=== PATIENT | male | born 1945 | race African-American/Black ===

== ENCOUNTER 2020-01-14 07:17 | Inpatient (IN) | payer SELFPAY ==
[~2020-01-14] VITALS: Ht 175.3 cm; Wt 56.3 kg
[2020-01-14 07:20] VITALS: BP 129/102
--- NOTE | 2020-01-14 07:28 | Emergency Room Report ---
History of Present Illness General Chief Complaint: Dyspnea/Respdistress Source: Patient (Juan Antonio Ulloa MD) Present Illness HPI Disclaimer: Please note that this report is being documented using [employer] technology. This can lead to erroneous entry secondary to incorrect i nterpretation by the dictating instrument. HPI: 74-year-old male presents by EMS from home for evaluation of shortness of breath. Patient felt like he could not fully expand his lungs this morning notes a nonproductive cough beginning yesterday. EMS found him saturating 92% on room air with some increased work of breathing. Placed him on 4 L nasal cannula which improved his saturations. Denies fever, chills, nasal congestion, anosmia, sore throat, current abdominal pain, nausea, vomiting or diarrhea. He was scheduled for an EGD this morning for recurrent epigastric pain though he is asymptomatic at this time. He was unable to make that appointment due to his shortness of breath. He denies chest pain. Patient has a long smoking history but states his last cigarette was proxy 1 week ago. Also tested negative for COVID-19 1 week ago. No other sick contacts reported. 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 EOMI. Cardiovascular: Tachycardic. S1 and S2 normal. No murmur appreciated Resp: Normal work of breathing. No cough, wheezing or crackles appreciated Abdomen: Abdomen is soft, nondistended. Nontender Skin: Intact. No abrasions, laceration or rash over the exposed skin MSK: Normal tone and bulk. Moving all extremities. No obvious deformity. Neuro: Awake and alert. Mentating appropriately. (Juan Antonio Ulloa MD) Procedures Critical Care Time Critical Care Time i. I feel this is a highly complex case requiring extensive working including EKG/Rhythm strip, Xray/CT/US, Blood/urine lab work, repeat exams while in ED, and administration of strong opiates/narcotics for pain control, admission to hospital or close patient follow up. Total time: 60 min bedside evaluation and treatment excludes procedures (EKG). Reason for critical care: Hypoxia Possible complications: hypotension, hypertension, NE, shock, arrhythmias, metabolic acidosis, end organ damage, respiratory failure. Interventions: Labs, IV fluids, EKG, chest x-ray, antibiotics, Lovenox, review with cardiology at [facility], Lopressor Course: Presenting with shortness of breath and hypoxia. EKG shows a flutter with some abnormalities. Given Lopressor x3 with some cardioversion achieved. aVR appears abnormal. Patient denies chest pain. States he feels better on oxygen. Lungs appear to have limited expansion. Given breathing treatments. States he feels better. Denies chest pain. Hyperinflated lungs. BUN and creatinine elevated. Troponin indeterminate. Lactic elevated. D-dimer elevated. Unable to perform CTA due to creatinine. Covid negative. reviewed EKG with cardiology at [facility]. Agree that this is not a STEMI. Consultations: nursing staff, EMS, family Performed by: Dr Barron Tolerated well condition = serious j. because of unstable vital signs this patient had a condition that could potentially threaten life or limb. I feel this is a critical patient who required my full attention while patient was considered critical. Total Critic al Care Time excluding procedures was greater than 60 minutes (Yazan Barron MD) Medical Decision Making Diagnostic Impression: Primary Impression: Respiratory distress Additional Impressions: Pneumonia Qualified Codes: J18.9 - Pneumonia, unspecified organism Renal insufficiency Elevated troponin COPD (chronic obstructive pulmonary disease) Qualified Codes: J44.9 - Chronic obstructive pulmonary disease, unspecified Sepsis Qualified Codes: A41.9 - Sepsis, unspecified organism ER Course Is a 74-year-old male presenting for evaluation of shortness of breath. Differential includes was not limited to bronchitis, COPD exacerbation, asthma expiration, pneumonia, pneumothorax, pleural effusion, ACS, arrhythmia, palpitation, viral syndrome, GERD, sepsis, PE among others. Patient arrives tachycardic but saturating well on 4 L nasal cannula. Broad work-up including COVID-19 swab, cultures, D-dimer, ABG ordered. Patient receiving IV fluids. (Juan Antonio Ulloa MD) ER Course Hospital Course 74-year-old male presents with shortness of breath, hypoxic from home Initially seen and evaluated by Dr Ulloa; please see his note for full history and physical Clinical course Labs-leukocytosis, hemoglobin/hematocrit stable, BUN/creatinine elevated. Lactic 6.9. Troponin 0.099. ABG shows hypoxia with hypercapnia. EKG initially a flutter. Given Lopressor x3 with heart rate improved. There are some abnormal T waves noted. EKG sent to [facility] and they agreed that there is not an indication for STEMI treatment or transfer. Chest x-ray shows hyperinflated lungs with right-sided infiltrate. Given 30 cc/kg fluid bolus. Given broad-spectrum antibiotics. Given Lovenox. Given aspirin. Given breathing treatment. Case discussed with Dr. Mon and he agreed to the patient to his service for further care and support I feel this is a highly complex case requiring extensive working including EKG/Rhythm strip, Xray/CT/US, Blood/urine lab work, repeat exams while in ED, and administration of strong opiates/narcotics for pain control, admission to hospital or close patient follow up. Diagnosis - pneumonia, respiratory distress, renal insufficiency, elevated troponin, COPD, sepsis Patient admitted to telemetry in serious condition Laboratory Tests Test 01/14/20 07:30 01/14/20 07:50 01/14/20 09:45 White Blood Count 12.3 K/UL (4.8-10.8) H Red Blood Count 5.57 M/UL (4.70-6.10) Hemoglobin 15.3 G/DL (14.2-18.0) Hematocrit 48.8 % (42.0-52.0) Mean Corpuscular Volume 88 FL (80-99) Mean Corpuscular Hemoglobin 27.5 PG (27.0-31.0) Mean Corpuscular Hemoglobin Concent 31.4 G/DL (32.0-36.0) L Red Cell Distribution Width 13.7 % (11.6-14.8) Platelet Count 135 K/UL (150-450) L Mean Platelet Volume 7.9 FL (6.5-10.1) Neutrophils (%) (Auto) % (45.0-75.0) Lymphocytes (%) (Auto) % (20.0-45.0) Monocytes (%) (Auto) % (1.0-10.0) Eosinophils (%) (Auto) % (0.0-3.0) Basophils (%) (Auto) % (0.0-2.0) Differential Total Cells Counted 100 Neutrophils % (Manual) 82 % (45-75) H Lymphocytes % (Manual) 3 % (20-45) L Monocytes % (Manual) 5 % (1-10) Eosinophils % (Manual) 0 % (0-3) Basophils % (Manual) 0 % (0-2) Band Neutrophils 10 % (0-8) H Platelet Estimate Decreased L Platelet Morphology Normal Red Blood Cell Morphology Normal Prothrombin Time 12.9 SEC (9.30-11.50) H Prothromb Time International Ratio 1.2 (0.9-1.1) H Activated Partial Thromboplast Time 31 SEC (23-33) D-Dimer 5.05 mg/L FEU (0.00-0.49) H Sodium Level 139 MMOL/L (136-145) Potassium Level 4.0 MMOL/L (3.5-5.1) Chloride Level 103 MMOL/L (98-107) Carbon Dioxide Level 16 MMOL/L (21-32) L Blood Urea Nitrogen 22 mg/dL (7-18) H Creatinine 2.0 MG/DL (0.55-1.30) H Estimat Glomerular Filtration Rate 39.6 mL/min (>60) Glucose Level 198 MG/DL (74-106) H Lactic Acid Level 6.90 mmol/L (0.4-2.0) H 4.30 mmol/L (0.66-2.22) H Calcium Level 8.9 MG/DL (8.5-10.1) Ferritin 221 NG/ML (8-388) Total Bilirubin 1.6 MG/DL (0.2-1.0) H Direct Bilirubin 0.7 MG/DL (0.0-0.3) H Aspartate Amino Transf (AST/SGOT) 87 U/L (15-37) H Alanine Aminotransferase (ALT/SGPT) 19 U/L (12-78) Alkaline Phosphatase 167 U/L (46-116) H Lactate Dehydrogenase 303 U/L (81-234) H Total Creatine Kinase 175 U/L (26-308) Creatine Kinase MB 0.8 NG/ML (0.0-3.6) Creatine Kinase MB Relative Index 0.4 Troponin I 0.099 ng/mL (0.000-0.056) C-Reactive Protein, Quantitative 33.9 mg/dL (0.00-0.90) H Pro-B-Type Natriuretic Peptide 76990 pg/mL (0-125) H Total Protein 7.0 G/DL (6.4-8.2) Albumin 3.1 G/DL (3.4-5.0) L Globulin 3.9 g/dL Albumin/Globulin Ratio 0.8 (1.0-2.7) L Lipase 39 U/L (73-393) L Arterial Blood pH 7.438 (7.350-7.450) Arterial Blood Partial Pressure CO2 27.1 mmHg (35.0-45.0) L Arterial Blood Partial Pressure O2 52.9 mmHg (75.0-100.0) L Arterial Blood HCO3 17.9 mmol/L (22.0-26.0) *L Arterial Blood Oxygen Saturation 86.1 % (95-100) *L Arterial Blood Base Excess -4.7 (-2-2) L Greg Test Positive (Yazan Barron MD) EKG Diagnostic Results Troponin ordered: Yes Rate: tachycardiac Rhythm: NSR ST Segments: no acute changes ASA given to the pt in ED: Yes (Yazan Barron MD) Rhythm Strip Diag. Results EP Interpretation: yes Rhythm: NSR, no PVC's, no ectopy (Yazan Barron MD) Chest X-Ray Diagnostic Results Chest X-Ray Diagnostic Results : Chest X-Ray Ordered: Yes # of Views/Limited/Complete: 1 View Indication: Shortness of Breath EP Interpretation: Yes Interpretation: no pneumothorax, other - Right-sided infiltrate Impression: Other - Hyperinflated lungs, pneumonia Electronically Signed by: Electronically signed by Yazan Barron MD (Yazan Barron MD) Last Vital Signs Date Time Temp Pulse Resp B/P (MAP) Pulse Ox O2 Delivery O2 Flow Rate FiO2 01/14/20 07:16 99.1 126 21 170/120 (137) 98 Nasal Cannula 4.0 (Juan Antonio Ulloa MD) Status: improved (Yazan Barron MD) Disposition: ADMITTED INPATIENT Condition: Serious Scripts Unable to Obtain Active Prescriptions or Reported Meds Juan Antonio Ulloa MD Jan 14, 2020 07:28 Yazan Barron MD Jan 14, 2020 11:58
[2020-01-14] MEDS: Metoprolol Tartrate 5mg/5ml Inj IVP SCH ×3 (08:06→10:07)
[2020-01-14 08:11] LABS: HEMATOCRIT 48.8 % (42.0-52.0); HEMOGLOBIN 15.3 G/DL (14.2-18.0); MEAN CORPUSCULAR VOLUME 88 FL (80-99); PLATELET COUNT 135 K/UL (150-450); RED BLOOD COUNT 5.57 M/UL (4.70-6.10); RED CELL DISTRIBUTION WIDTH 13.7 % (11.6-14.8); WHITE BLOOD COUNT 12.3 K/UL (4.8-10.8)
[2020-01-14 08:22] LABS: INR 1.2 (0.9-1.1)
[2020-01-14 09:07] LABS: ALANINE AMINOTRANSFERASE 19 U/L (12-78); ALBUMIN 3.1 G/DL (3.4-5.0); ALBUMIN/GLOBULIN RATIO 0.8 (1.0-2.7); ALKALINE PHOSPHATASE 167 U/L (46-116); ASPARTATE AMINO TRANSFERASE 87 U/L (15-37); BILIRUBIN,TOTAL 1.6 MG/DL (0.2-1.0); BLOOD UREA NITROGEN 22 mg/dL (7-18); CALCIUM 8.9 MG/DL (8.5-10.1); CHLORIDE 103 MMOL/L (98-107); CKMB 0.8 NG/ML (0.0-3.6); CREATINE KINASE 175 U/L (26-308); FERRITIN 221 NG/ML (8-388); LACTATE DEHYDROGENASE 303 U/L (81-234); SODIUM 139 MMOL/L (136-145)
[2020-01-14 09:17] LABS: CARBON DIOXIDE 16 MMOL/L (21-32)
[2020-01-14 09:23] VITALS: BP 121/93
[2020-01-14 09:23] LABS: BILIRUBIN,DIRECT 0.7 MG/DL (0.0-0.3)
[2020-01-14] MEDS ORDERED: Enoxaparin 60mg Inj SUBQ ONE ×2 (10:05→10:15)
[2020-01-14] MEDS ORDERED: Albuterol/Ipratropium 3ml neb HHN ONE (10:45)
[2020-01-14 11:30] VITALS: BP 141/89
--- NOTE | 2020-01-14 14:30 | Diagnostic Imaging Report ---
Indication: Shortness of breath Technique: One view of the chest Comparison: none Findings: There is some infiltrate in the right infrahilar region. The lungs and pleural spaces are otherwise clear. The heart size is normal. The aorta is calcified Impression: Right infrahilar infiltrate
[2020-01-14] MEDS ORDERED: dilTIAZem HCl 60mg tab ORAL SCH (15:30)
[2020-01-14] MEDS ORDERED: TRIAMTERENE-HC1 EAC5 ORAL (15:49)
[2020-01-14] MEDS ORDERED: AMLODIPINE BESYL5 MG ORAL (15:49)
[2020-01-14] MEDS ORDERED: METOPROLOL TART25 MG ORAL (15:49)
[2020-01-14] MEDS ORDERED: ASPIRIN81 M3 PO (15:49)
--- NOTE | 2020-01-14 16:13 | Consultation ---
History of Present Illness General Date patient seen: Jan 14, 2020 Time patient seen: 16:03 Chief Complaint: Dyspnea/Respdistress Referring physician: Dr. Miguel Mon Reason for Consultation: Shortness of breath Present Illness HPI 74 y/o male w/ hx HTN, tobacco use disorder with several days of shortness of breath, cough with sputum and today stood up and was feeling dizzy/lightheaded. Brought to the hospital and found with hypoxia and CXR with RLL infiltrate as well as lactic acidosis. Also with atrial flutter. Long time smoker states he quit a week ago. Given levaquin in the emergency room. Allergies: Coded Allergies: No Known Allergies (Unverified , 01/14/20) Medication History Scheduled Amlodipine Besylate* (Amlodipine Besylate*), 5 MG ORAL DAILY, (Reported) Metoprolol Tartrate* (Metoprolol Tartrate*), 25 MG ORAL EVERY 12 HOURS, (Reported) Triamterene/Hydrochlorothiazide* (Dyazide 37.5-25 Mg Tab*), 1 TAB ORAL DAILY, (Reported) Miscellaneous Medications Aspirin (Aspirin), 81 MG PO, (Reported) Patient History History Provided By: Patient Healthcare decision maker Resuscitation status Advanced Directive on File Review of Systems Constitutional: Reports: weakness Eye: Denies: no symptoms, see HPI, eye pain, blurred vision, tearing, double vision, nose pain, nose congestion, acuity changes, discharge, other ENT: Denies: no symptoms, see HPI, ear pain, ear discharge, nose pain, nose congestion, throat pain, throat swelling, mouth pain, hearing loss, nasal discharge, other Respiratory: Reports: cough, shortness of breath Cardiovascular: Denies: no symptoms, see HPI, chest pain, edema, palpitations, syncope, PND, other Gastrointestinal: Denies: no symptoms, see HPI, abdominal pain, constipation, diarrhea, nausea, vomiting, melena, hematemesis, other Genitourinary: Denies: no symptoms, see HPI, discharge, dysuria, frequency, hematuria, pain, retention, incontinence, urgency, vag bleed/dc, other Musculoskeletal: Denies: no symptoms, see HPI, back pain, gout, joint pain, joint swelling, muscle pain, muscle stiffness, other Skin: Denies: no symptoms, see HPI, rash, change in color, change in hair/nails, dryness, lesions, other Psychiatric: Denies: no symptoms, see HPI, prior hx, anxiety, depressed feelings, emotional problems, SI, HI, hallucinations, other Neurological: Reports: dizziness Endocrine: Denies: no symptoms, see HPI, excessive sweating, flushing, intolerance to temperature, increased thirst, increased urine, unexplained weight loss, other Hematologic/Lymphatic: Denies: no symptoms, see HPI, anemia, blood clots, easy bleeding, easy bruising, swollen glands, diathesis, other Physical Exam General Appearance: WD/WN, no apparent distress, alert HEENT: normocephalic, atraumatic, anicteric, mucous membranes moist Neck: non-tender, supple Respiratory/Chest: other - coarse breath sounds with R basilar rales and wheeze with overall diminished breath sounds/air movement Cardiovascular/Chest: tachycardia Abdomen: non tender, soft Extremities: no edema 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 normal Last 24 Hour Vital Signs Date Time Temp Pulse Resp B/P (MAP) Pulse Ox O2 Delivery O2 Flow Rate FiO2 01/14/20 12:50 97.9 119 20 137/81 97 Room Air 8.0 40 01/14/20 11:30 97.6 117 20 141/89 99 Room Air 8.0 40 01/14/20 10:47 108 22 100 Room Air 8.0 40 115 22 100 01/14/20 10:07 122 137/97 01/14/20 09:23 98.5 118 20 121/93 94 Nasal Cannula 4.0 01/14/20 08:59 123 129/102 01/14/20 08:06 132 121/96 01/14/20 07:20 99.0 129 26 129/102 97 Nasal Cannula 4.0 01/14/20 07:20 129 26 Nasal Cannula 4.0 01/14/20 07:16 99.1 126 21 170/120 (137) 98 Nasal Cannula 4.0 Laboratory Tests Test 01/14/20 07:30 01/14/20 07:50 01/14/20 09:45 White Blood Count 12.3 K/UL (4.8-10.8) H Red Blood Count 5.57 M/UL (4.70-6.10) Hemoglobin 15.3 G/DL (14.2-18.0) Hematocrit 48.8 % (42.0-52.0) Mean Corpuscular Volume 88 FL (80-99) Mean Corpuscular Hemoglobin 27.5 PG (27.0-31.0) Mean Corpuscular Hemoglobin Concent 31.4 G/DL (32.0-36.0) L Red Cell Distribution Width 13.7 % (11.6-14.8) Platelet Count 135 K/UL (150-450) L Mean Platelet Volume 7.9 FL (6.5-10.1) Neutrophils (%) (Auto) % (45.0-75.0) Lymphocytes (%) (Auto) % (20.0-45.0) Monocytes (%) (Auto) % (1.0-10.0) Eosinophils (%) (Auto) % (0.0-3.0) Basophils (%) (Auto) % (0.0-2.0) Differential Total Cells Counted 100 Neutrophils % (Manual) 82 % (45-75) H Lymphocytes % (Manual) 3 % (20-45) L Monocytes % (Manual) 5 % (1-10) Eosinophils % (Manual) 0 % (0-3) Basophils % (Manual) 0 % (0-2) Band Neutrophils 10 % (0-8) H Platelet Estimate Decreased L Platelet Morphology Normal Red Blood Cell Morphology Normal Prothrombin Time 12.9 SEC (9.30-11.50) H Prothromb Time International Ratio 1.2 (0.9-1.1) H Activated Partial Thromboplast Time 31 SEC (23-33) D-Dimer 5.05 mg/L FEU (0.00-0.49) H Sodium Level 139 MMOL/L (136-145) Potassium Level 4.0 MMOL/L (3.5-5.1) Chloride Level 103 MMOL/L (98-107) Carbon Dioxide Level 16 MMOL/L (21-32) L Blood Urea Nitrogen 22 mg/dL (7-18) H Creatinine 2.0 MG/DL (0.55-1.30) H Estimat Glomerular Filtration Rate 39.6 mL/min (>60) Glucose Level 198 MG/DL (74-106) H Lactic Acid Level 6.90 mmol/L (0.4-2.0) H 4.30 mmol/L (0.66-2.22) H Calcium Level 8.9 MG/DL (8.5-10.1) Ferritin 221 NG/ML (8-388) Total Bilirubin 1.6 MG/DL (0.2-1.0) H Direct Bilirubin 0.7 MG/DL (0.0-0.3) H Aspartate Amino Transf (AST/SGOT) 87 U/L (15-37) H Alanine Aminotransferase (ALT/SGPT) 19 U/L (12-78) Alkaline Phosphatase 167 U/L (46-116) H Lactate Dehydrogenase 303 U/L (81-234) H Total Creatine Kinase 175 U/L (26-308) Creatine Kinase MB 0.8 NG/ML (0.0-3.6) Creatine Kinase MB Relative Index 0.4 Troponin I 0.099 ng/mL (0.000-0.056) C-Reactive Protein, Quantitative 33.9 mg/dL (0.00-0.90) H Pro-B-Type Natriuretic Peptide 82404 pg/mL (0-125) H Total Protein 7.0 G/DL (6.4-8.2) Albumin 3.1 G/DL (3.4-5.0) L Globulin 3.9 g/dL Albumin/Globulin Ratio 0.8 (1.0-2.7) L Lipase 39 U/L (73-393) L Arterial Blood pH 7.438 (7.350-7.450) Arterial Blood Partial Pressure CO2 27.1 mmHg (35.0-45.0) L Arterial Blood Partial Pressure O2 52.9 mmHg (75.0-100.0) L Arterial Blood HCO3 17.9 mmol/L (22.0-26.0) *L Arterial Blood Oxygen Saturation 86.1 % (95-100) *L Arterial Blood Base Excess -4.7 (-2-2) L Greg Test Positive Microbiology Date/Time Source Procedure Growth Status 01/14/20 07:30 Nasopharynx SARS-CoV-2 RdRp Gene Assay - Final Complete Height (Feet): 6 Weight (Pounds): 170 Medications Current Medications Medications (Trade) Dose Ordered Sig/Lola Route PRN Reason Start Time Stop Time Status Last Admin Dose Admin Diltiazem HCl (Cardizem Tab) 60 mg EVERY 6 HOURS ORAL 01/14/20 18:00 02/13/20 17:59 Diltiazem HCl (Cardizem Tab) 60 mg ONCE ORAL 01/14/20 15:30 01/14/20 16:30 Metoprolol Tartrate (Lopressor) 5 mg Q5MIN X 3 IVP 01/14/20 08:00 04/13/20 07:59 01/14/20 10:07 Assessment/Plan Assessment/Plan: Assessment: * Acute hypoxemic respiratory failure * Sepsis * RLL pneumonia * Lactic acidosis * Bronchospasm * Atrial flutter * tobacco use disorder * Hx HTN Plan: * abx for pneumonia * rate control for atrial flutter, hopefully improvement with treatment of pneumonia * atrovent nebs, avoid albuterol * Monitor volumes Case d/w Inder Soto MD Jan 14, 2020 16:13
[2020-01-14] MEDS ORDERED: Ipratropium 0.02% Inh Soln 2.5ml UD HHN PRN (16:15)
[2020-01-14] MEDS ORDERED: Milk of Magnesia 30ml Ud ORAL PRN (16:30)
[2020-01-14] MEDS: cefTRIAXone 1 GM in D5W 55 ML IVPB SCH (17:39)
[2020-01-14] MEDS: Eliquis 5mg tablet ORAL SCH (17:39)
[2020-01-14] MEDS: dilTIAZem HCl 60mg tab ORAL SCH (18:05)
--- NOTE | 2020-01-14 18:45 | History and Physical Report ---
DATE OF ADMISSION: 01/14/2020 CHIEF COMPLAINT/REASON FOR HOSPITALIZATION: The patient has dyspnea, pneumonia, and rapid atrial flutter. HISTORY OF PRESENT ILLNESS: The patient has a history of hypertension and smoking most of his life, apparently quit a week ago. He presents with shortness of breath, abnormal chest x-ray, and atrial flutter. Apparently, he was scheduled for an EGD for epigastric pain, but this has not occurred. The patient is only a fair historian. ALLERGIES: None known. 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 HABITS: He is a lifelong smoker, recently quit. Alcohol none for over 30 years. SOCIAL HISTORY: He is an immigrant from [facility]. 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 SYSTEM REVIEW: HEAD, EYES, EARS, NOSE, THROAT: Vision and hearing is good. ENDOCRINE: No known diabetes or thyroid disease. He has been thin most of his life. PULMONARY: History of smoking as above. No history of asthma or using inhalers. CARDIAC: He is not aware of palpitations or chest pain. Noted history of MO. GASTROINTESTINAL: No ulcers or GI bleeding. Apparently, he has had epigastric pain in the past. GENITOURINARY: No dysuria, hematuria, or kidney stones. NEUROLOGIC: No CVA, syncope, or seizures. PHYSICAL EXAMINATION: GENERAL: The patient is alert man. He is just arriving in his room in no acute distress. VITAL SIGNS: Temperature 97.9, pulse 119, respiratory rate 20, blood pressure 137/81. HEAD, EYES, EARS, NOSE, THROAT: Sclerae are nonicteric. Ocular motions intact in all directions. He is edentulous. Throat is clear. NECK: No adenopathy or thyroid enlargement. LUNGS: Distant breath sounds. I do not hear any rales or rhonchi. HEART: Rhythm is irregular. There is a 2/6 systolic ejection murmur, harsh. ABDOMEN: Soft without organomegaly or masses. He is quite thin . EXTREMITIES: Show no edema. There is amputation of the right second and third toe. NEUROLOGIC: He is alert and oriented. Cranial nerves intact. PERTINENT LABORATORY DATA: Chest x-ray shows a right middle lobe infiltrate. White count 12.3, hemoglobin 15.3. BUN 22, creatinine 2, sodium 139, potassium 4, chloride 103, and CO2 of 16. Lactic acid 6.9 and 4.3. Troponin 0.099. BNP is 10,947. Albumin 3.1. IMPRESSION: 1. Pneumonia, right lower lobe. 2. Atrial flutter with rapid ventricular rate. 3. Lactic acidosis. 4. Elevated BUN and creatinine, possible chronic kidney disease, possible component of dehydration. 5. Abnormal glucose of 198. 6. Abnormal AST of 87 and alkaline phosphatase 167. LDH 303. To evaluate for liver disease. 7. Low serum albumin, likely some moderate protein-calorie malnutrition. PLAN: The patient will be treated with antibiotics for community-acquired pneumonia. We will get rate control on his atrial flutter and anticoagulation. We will watch him closely in view of his comorbidities. Miguel Mon M.D. DR: Galen JOB#: [id number] CC:
[2020-01-14] MEDS: Azithromycin 500 MG in D5W 275 ML IV SCH (19:20)
[2020-01-14 20:00] VITALS: BP 116/84
[2020-01-15] VITALS (7 sets, daily range): BP systolic 110–124; BP diastolic 70–85
[2020-01-15] MEDS: dilTIAZem HCl 60mg tab ORAL SCH ×5 (06:18→23:57)
[2020-01-15 06:38] LABS: HEMATOCRIT 37.5 % (42.0-52.0); HEMOGLOBIN 12.5 G/DL (14.2-18.0); MEAN CORPUSCULAR VOLUME 88 FL (80-99); PLATELET COUNT 147 K/UL (150-450); RED BLOOD COUNT 4.27 M/UL (4.70-6.10); WHITE BLOOD COUNT 10.9 K/UL (4.8-10.8)
[2020-01-15 07:02] LABS: ALBUMIN 2.4 G/DL (3.4-5.0); ALBUMIN/GLOBULIN RATIO 0.6 (1.0-2.7); BILIRUBIN,TOTAL 0.7 MG/DL (0.2-1.0); CALCIUM 8.1 MG/DL (8.5-10.1); CREATININE 1.4 MG/DL (0.55-1.30); POTASSIUM 4.1 MMOL/L (3.5-5.1)
[2020-01-15] MEDS: Eliquis 5mg tablet ORAL SCH ×2 (08:58→18:11)
[2020-01-15] MEDS ORDERED: guaiFENesin /DM 10ml syrup ORAL PRN (09:45)
--- NOTE | 2020-01-15 09:53 | Pulmonology Progress Note ---
Subjective ROS Limited/Unobtainable: No Allergies: Coded Allergies: No Known Allergies (Unverified , 01/14/20) Subjective leuk resolving, no fvers remains on VM + cough, some SOB no hemoptysis, no wheezing reports feeling better no CP, palpitations now HR controlled, though remains in A flutter creat trending down Objective Last 24 Hour Vital Signs Date Time Temp Pulse Resp B/P (MAP) Pulse Ox O2 Delivery O2 Flow Rate FiO2 01/15/20 09:22 93 120/74 01/15/20 09:20 120/74 (89) 01/15/20 08:00 98.9 68 20 117/85 (96) 98 01/15/20 06:18 80 113/80 01/15/20 04:00 98.1 67 20 111/72 (85) 97 01/15/20 04:00 67 01/15/20 00:00 68 01/15/20 00:00 65 110/65 01/15/20 00:00 98.1 67 20 110/70 (83) 96 01/14/20 21:28 77 116/84 01/14/20 21:00 Venturi Mask 7.0 01/14/20 20:00 86 01/14/20 20:00 98.2 77 21 116/84 (95) 96 01/14/20 18:05 107 141/96 01/14/20 17:16 Venturi Mask 6.0 01/14/20 16:05 125 129/102 01/14/20 12:50 97.9 119 20 137/81 97 Room Air 8.0 40 01/14/20 11:30 97.6 117 20 141/89 99 Room Air 8.0 40 01/14/20 10:47 108 22 100 Room Air 8.0 40 115 22 100 01/14/20 10:07 122 137/97 Intake and Output 01/14/20 01/15/20 19:00 07:00 Intake Total 240 ml 600 ml Output Total 1200 ml 800 ml Balance -960 ml -200 ml Intake Oral 240 ml 600 ml Output Urine Total 1200 ml 800 ml # Voids 3 2 General Appearance: no acute distress HEENT: normocephalic, atraumatic, anicteric, mucous membranes moist, PERRL, other - VM on Respiratory: chest wall non-tender, no respiratory distress, other - coarse BS with rhonchi on the right Cardiovascular: normal rate - A flutter on tele Abdomen: normal bowel sounds, soft, non tender, non distended Extremities: no edema, pedal pulses normal Skin: no rash Neurologic: shotblaster II-XII grossly normal, no motor/sensory deficits, alert, oriented x 3, responsive Musculoskeletal: normal muscle bulk Microbiology Date/Time Source Procedure Growth Status 01/14/20 07:30 Nasopharynx SARS-CoV-2 RdRp Gene Assay - Final Complete Laboratory Tests 01/14/20 09:45: Lactic Acid Level 4.30H 01/15/20 05:50: White Blood Count 10.9H, Red Blood Count 4.27L, Hemoglobin 12.5L, Hematocrit 37.5L, Mean Corpuscular Volume 88, Mean Corpuscular Hemoglobin 29.3, Mean Corpu scular Hemoglobin Concent 33.4, Red Cell Distribution Width 14.0, Platelet Count 147L, Mean Platelet Volume 7.9, Neutrophils (%) (Auto) , Lymphocytes (%) (Auto) , Monocytes (%) (Auto) , Eosinophils (%) (Auto) , Basophils (%) (Auto) , N eutrophils % (Manual) [Pending], Lymphocytes % (Manual) [Pending], Platelet Estimate [Pending], Platelet Morphology [Pending], Sodium Level 140, Potassium Level 4.1, Chloride Level 108H, Carbon Dioxide Level 24, Anion Gap 8, Blood Urea Nitrogen 26H, Creatinine 1.4H, Estimat Glomerular Filtration Rate 59.9, Glucose Level 102, Calcium Level 8.1L, Total Bilirubin 0.7, Aspartate Amino Transf (AST/SGOT) 44H, Alanine Aminotransferase (ALT/SGPT) 18, Alkaline Phosphatase 142H, Troponin I 0.127H, Total Protein 6.2L, Albumin 2.4L, Globulin 3.8, Albumin/Globulin Ratio 0.6L Current Medications Medications (Trade) Dose Ordered Sig/Lola Route PRN Reason Start Time Stop Time Status Last Admin Dose Admin Acetaminophen (Tylenol) 650 mg Q4H PRN ORAL Mild Pain (Pain Scale 1-3) 01/14/20 16:30 02/13/20 16:29 Apixaban (Eliquis) 5 mg BID ORAL 01/14/20 18:00 04/13/20 17:59 01/15/20 08:58 Azithromycin 500 mg/Dextrose 275 ml @ 275 mls/hr Q24HRS IV 01/14/20 18:00 01/20/20 18:59 01/14/20 19:20 Ceftriaxone Sodium 1 gm/ Dextrose 55 ml @ 110 mls/hr Q24H IVPB 01/14/20 17:00 01/21/20 16:59 01/14/20 17:39 Diltiazem HCl (Cardizem Tab) 60 mg EVERY 6 HOURS ORAL 01/14/20 18:00 02/13/20 17:59 01/15/20 06:18 Famotidine (Pepcid) 20 mg DAILY ORAL 01/14/20 16:30 04/13/20 16:29 01/15/20 08:57 Ipratropium [place] (Atrovent) 500 mcg Q4H PRN HHN Shortness of Breath 01/14/20 16:15 01/19/20 16:14 Magnesium Hydroxide (Mom) 30 ml DAILYPRN PRN ORAL Constipation 01/14/20 16:30 02/13/20 16:29 Metoprolol Tartrate (Lopressor) 5 mg Q5MIN X 3 IVP 01/14/20 08:00 04/13/20 07:59 01/14/20 10:07 Metoprolol Tartrate (Lopressor) 25 mg Q12HR ORAL 01/14/20 21:00 04/13/20 20:59 01/15/20 09:22 Assessment/Plan Assessment/Plan ASSESSMENT * Acute hypoxemic respiratory failure ( requiring supplemental O2) * Sepsis * RLL pneumonia * Lactic acidosis * Bronchospasm, possible COPD * Atrial flutter with RVR * elevated troponin * tobacco use disorder * Hx HTN * MADDY possibly on CKD * Protein calorie malnutrition * elevated AST PLAN * abx for CAP /pneumonia -Azithro and Ceftriaxone * rate control for atrial flutter, now controlled, a/c with Xarelto * O2 titrate to keep sat > 90% * atrovent nebs, avoid albuterol * monitor volumes * fup with CXR * a/tussive prn * declined Nicotine patch * hiv counselor to continue abstinence from smoking ( quit a week ago) * serial troponin, troponin leak 2 to renal failure vs demand due to A flutter with RVR? * cardio eval as per primary , no cardiac complaints, * consider ECHO * creat trending down, likely due to dehydration, possibly chronic component * dietary eval re protein calorie malnutrition * GI prophylaxis * monitor LFT, AST trending down, denies ETOH or dug use, no hx of liver disease, no hx of hepatitis case discussed and evaluated by supervising physician Gunjan Holliday NP Jan 15, 2020 09:53
--- NOTE | 2020-01-15 13:14 | Cardiology Progress Note ---
Assessment/Plan Assessment/Plan The patient is seen and examined, full consult note is dictated. Objective Last 24 Hour Vital Signs Date Time Temp Pulse Resp B/P (MAP) Pulse Ox O2 Delivery O2 Flow Rate FiO2 01/15/20 12:30 68 119/72 01/15/20 12:00 98.1 68 17 119/72 (88) 96 01/15/20 09:22 93 120/74 01/15/20 09:20 120/74 (89) 01/15/20 09:00 Venturi Mask 6.0 01/15/20 08:00 98.9 68 20 117/85 (96) 98 01/15/20 08:00 76 01/15/20 06:18 80 113/80 01/15/20 04:00 98.1 67 20 111/72 (85) 97 01/15/20 04:00 67 01/15/20 00:00 68 01/15/20 00:00 65 110/65 01/15/20 00:00 98.1 67 20 110/70 (83) 96 01/14/20 21:28 77 116/84 01/14/20 21:00 Venturi Mask 7.0 01/14/20 20:00 86 01/14/20 20:00 98.2 77 21 116/84 (95) 96 01/14/20 18:05 107 141/96 01/14/20 17:16 Venturi Mask 6.0 01/14/20 16:05 125 129/102 Intake and Output 01/14/20 01/15/20 19:00 07:00 Intake Total 240 ml 600 ml Output Total 1200 ml 800 ml Balance -960 ml -200 ml Intake Oral 240 ml 600 ml Output Urine Total 1200 ml 800 ml # Voids 3 2 Laboratory Tests Test 01/15/20 05:50 White Blood Count 10.9 K/UL (4.8-10.8) H Red Blood Count 4.27 M/UL (4.70-6.10) L Hemoglobin 12.5 G/DL (14.2-18.0) L Hematocrit 37.5 % (42.0-52.0) L Mean Corpuscular Volume 88 FL (80-99) Mean Corpuscular Hemoglobin 29.3 PG (27.0-31.0) Mean Corpuscular Hemoglobin Concent 33.4 G/DL (32.0-36.0) Red Cell Distribution Width 14.0 % (11.6-14.8) Platelet Count 147 K/UL (150-450) L Mean Platelet Volume 7.9 FL (6.5-10.1) Neutrophils (%) (Auto) % (45.0-75.0) Lymphocytes (%) (Auto) % (20.0-45.0) Monocytes (%) (Auto) % (1.0-10.0) Eosinophils (%) (Auto) % (0.0-3.0) Basophils (%) (Auto) % (0.0-2.0) Differential Total Cells Counted 100 Neutrophils % (Manual) 87 % (45-75) H Lymphocytes % (Manual) 9 % (20-45) L Monocytes % (Manual) 3 % (1-10) Eosinophils % (Manual) 1 % (0-3) Basophils % (Manual) 0 % (0-2) Band Neutrophils 0 % (0-8) Platelet Estimate Decreased L Platelet Morphology Normal Red Blood Cell Morphology Normal Sodium Level 140 MMOL/L (136-145) Potassium Level 4.1 MMOL/L (3.5-5.1) Chloride Level 108 MMOL/L (98-107) H Carbon Dioxide Level 24 MMOL/L (21-32) Anion Gap 8 mmol/L (5-15) Blood Urea Nitrogen 26 mg/dL (7-18) H Creatinine 1.4 MG/DL (0.55-1.30) H Estimat Glomerular Filtration Rate 59.9 mL/min (>60) Glucose Level 102 MG/DL (74-106) Calcium Level 8.1 MG/DL (8.5-10.1) L Total Bilirubin 0.7 MG/DL (0.2-1.0) Aspartate Amino Transf (AST/SGOT) 44 U/L (15-37) H Alanine Aminotransferase (ALT/SGPT) 18 U/L (12-78) Alkaline Phosphatase 142 U/L (46-116) H Troponin I 0.127 ng/mL (0.000-0.056) Total Protein 6.2 G/DL (6.4-8.2) L Albumin 2.4 G/DL (3.4-5.0) L Globulin 3.8 g/dL Albumin/Globulin Ratio 0.6 (1.0-2.7) L Microbiology Date/Time Source Procedure Growth Status 01/14/20 07:30 Nasopharynx SARS-CoV-2 RdRp Gene Assay - Final Complete Cecil Mora MD Jan 15, 2020 13:14
[2020-01-15] MEDS: cefTRIAXone 1 GM in D5W 55 ML IVPB SCH (17:06)
[2020-01-15] MEDS: Azithromycin 500 MG in D5W 275 ML IV SCH (18:10)
--- NOTE | 2020-01-15 19:55 | General Progress Note ---
Subjective Constitutional: Reports: weakness Respiratory: Reports: cough Gastrointestinal/Abdominal: Reports: no symptoms Genitourinary: Reports: no symptoms Endocrine: Reports: no symptoms Hematologic/Lymphatic: Reports: no symptoms Allergies: Coded Allergies: No Known Allergies (Unverified , 01/14/20) Objective Last 24 Hour Vital Signs Date Time Temp Pulse Resp B/P (MAP) Pulse Ox O2 Delivery O2 Flow Rate FiO2 01/15/20 18:14 85 116/81 01/15/20 16:00 75 01/15/20 16:00 98.8 69 18 118/79 (92) 96 01/15/20 12:30 68 119/72 01/15/20 12:00 98.1 68 17 119/72 (88) 96 01/15/20 12:00 84 01/15/20 09:22 93 120/74 01/15/20 09:20 120/74 (89) 01/15/20 09:00 Venturi Mask 6.0 01/15/20 08:00 98.9 68 20 117/85 (96) 98 01/15/20 08:00 76 01/15/20 06:18 80 113/80 01/15/20 04:00 98.1 67 20 111/72 (85) 97 01/15/20 04:00 67 01/15/20 00:00 68 01/15/20 00:00 65 110/65 01/15/20 00:00 98.1 67 20 110/70 (83) 96 01/14/20 21:28 77 116/84 01/14/20 21:00 Venturi Mask 7.0 01/14/20 20:00 86 01/14/20 20:00 98.2 77 21 116/84 (95) 96 Intake and Output 01/14/20 01/15/20 19:00 07:00 Intake Total 240 ml 600 ml Output Total 1200 ml 800 ml Balance -960 ml -200 ml Intake Oral 240 ml 600 ml Output Urine Total 1200 ml 800 ml # Voids 3 2 Laboratory Tests 01/15/20 05:50: White Blood Count 10.9H, Red Blood Count 4.27L, Hemoglobin 12.5L, Hematocrit 37.5L, Mean Corpuscular Volume 88, Mean Corpuscular Hemoglobin 29.3, Mean Cor puscular Hemoglobin Concent 33.4, Red Cell Distribution Width 14.0, Platelet Count 147L, Mean Platelet Volume 7.9, Neutrophils (%) (Auto) , Lymphocytes (%) (Auto) , Monocytes (%) (Auto) , Eosinophils (%) (Auto) , Basophils (%) (Auto) , Differential Total Cells Counted 100, Neutrophils % (Manual) 87H, Lymphocytes % (Manual) 9L, Monocytes % (Manual) 3, Eosinophils % (Manual) 1, Basophils % (Manual) 0, Band Neutrophils 0, Platelet Estimate DecreasedL, Platelet Morphology Normal, Red Blood Cell Morphology Normal, Sodium Level 140, Potassium Level 4.1, Chloride Level 108H, Carbon Dioxide Level 24, Anion Gap 8, Blood Urea Nitrogen 26H, Creatinine 1.4H, Estimat Glomerular Filtration Rate 59.9, Glucose Level 102, Calcium Level 8.1L, Total Bilirubin 0.7, Aspartate Amino Transf (AST/SGOT) 44H, Alanine Aminotransferase (ALT/SGPT) 18, Alkaline Phosphatase 142H, Troponin I 0.127H, Total Protein 6.2L, Albumin 2.4L, Globulin 3.8, Albumin/Globulin Ratio 0.6L Height (Feet): 5 Height (Inches): 9.00 Weight (Pounds): 127 General Appearance: no apparent distress, alert, thin EENT: normal ENT inspection Neck: normal alignment Cardiovascular: regularly irregular Respiratory/Chest: lungs clear Abdomen: no organomegaly Edema: no edema noted Arm (L), no edema noted Arm (R), no edema noted Leg (L), no edema noted Leg (R), no edema noted Pedal (L), no edema noted Pedal (R), no edema noted Generalized Neurologic: hemp fiber taker off II-XII grossly normal Assessment/Plan Problem List: (1) Atrial flutter ICD Codes: I48.92 - Unspecified atrial flutter SNOMED: 2613680 (2) Pneumonia ICD Codes: J18.9 - Pneumonia, unspecified organism SNOMED: 336716049, 803700414, 662393039 Qualifiers: Qualified Codes: J18.9 - Pneumonia, unspecified organism (3) Elevated troponin ICD Codes: R77.8 - Other specified abnormalities of plasma proteins SNOMED: 979263973, 685579705, 259178435 (4) COPD (chronic obstructive pulmonary disease) ICD Codes: J44.9 - Chronic obstructive pulmonary disease, unspecified SNOMED: 45184676 Qualifiers: Qualified Codes: J44.9 - Chronic obstructive pulmonary disease, unspecified Assessment/Plan: improving, continue current meds, CM to assess dc plan Miguel Mon MD Jan 15, 2020 19:55
[2020-01-16] VITALS: BP 134/84
[2020-01-16 04:00] VITALS: BP 126/81
[2020-01-16] MEDS: dilTIAZem HCl 60mg tab ORAL SCH ×3 (06:16→17:29)
[2020-01-16 07:22] LABS: BASOPHILS % (AUTO) 1.2 % (0.0-2.0); EOSINOPHILS % (AUTO) 0.7 % (0.0-3.0); HEMATOCRIT 40.2 % (42.0-52.0); HEMOGLOBIN 13.6 G/DL (14.2-18.0); LYMPHOCYTES % (AUTO) 13.6 % (20.0-45.0); MEAN CORPUSCULAR VOLUME 86 FL (80-99); NEUTROPHILS % (AUTO) 74.5 % (45.0-75.0); PLATELET COUNT 154 K/UL (150-450); RED BLOOD COUNT 4.66 M/UL (4.70-6.10); RED CELL DISTRIBUTION WIDTH 14.1 % (11.6-14.8); WHITE BLOOD COUNT 6.7 K/UL (4.8-10.8)
[2020-01-16 07:34] LABS: ANION GAP 7 mmol/L (5-15); BLOOD UREA NITROGEN 14 mg/dL (7-18); CALCIUM 8.6 MG/DL (8.5-10.1); CARBON DIOXIDE 27 MMOL/L (21-32); CHLORIDE 105 MMOL/L (98-107); CREATININE 1.2 MG/DL (0.55-1.30); POTASSIUM 4.1 MMOL/L (3.5-5.1); SODIUM 139 MMOL/L (136-145)
[2020-01-16 08:00] VITALS: BP 140/91
[2020-01-16] MEDS: Eliquis 5mg tablet ORAL SCH ×2 (08:59→17:29)
--- NOTE | 2020-01-16 09:15 | Pulmonology Progress Note ---
Subjective ROS Limited/Unobtainable: No Allergies: Coded Allergies: No Known Allergies (Unverified , 01/14/20) All Systems: reviewed and negative except above Subjective leuk resolving, no fevers remains on VM 30 % + cough, some SOB no hemoptysis, no wheezing reports feeling better no CP, palpitations now HR controlled, though remains in A flutter creat down to normal Objective Last 24 Hour Vital Signs Date Time Temp Pulse Resp B/P (MAP) Pulse Ox O2 Delivery O2 Flow Rate FiO2 01/16/20 08:59 98 140/91 01/16/20 08:00 99.1 98 20 140/91 (107) 95 01/16/20 07:15 95 Venturi Mask 4.0 30 01/16/20 06:16 97 147/99 01/16/20 04:00 71 01/16/20 04:00 98.8 56 20 126/81 (96) 98 01/16/20 00:00 98.8 66 20 134/84 (101) 97 01/16/20 00:00 66 01/15/20 23:57 66 134/84 01/15/20 21:29 95 124/85 01/15/20 21:00 Venturi Mask 4.0 01/15/20 20:00 99.0 95 24 124/85 (98) 95 01/15/20 20:00 75 01/15/20 18:14 85 116/81 01/15/20 16:00 75 01/15/20 16:00 98.8 69 18 118/79 (92) 96 01/15/20 12:30 68 119/72 01/15/20 12:00 98.1 68 17 119/72 (88) 96 01/15/20 12:00 84 01/15/20 09:22 93 120/74 01/15/20 09:20 120/74 (89) Intake and Output 01/15/20 01/16/20 19:00 07:00 Intake Total 850 ml Output Total 750 ml Balance 100 ml Intake Oral 450 ml Other 400 ml Output Urine Total 750 ml General Appearance: no acute distress HEENT: normocephalic, atraumatic, anicteric, mucous membranes moist, PERRL, o ther - VM on Respiratory: chest wall non-tender, no respiratory distress, other - few isolated rhonchi on the right, overall BS much clear Cardiovascular: normal rate - A flutter on tele Abdomen: normal bowel sounds, soft, non tender, non distended Extremities: no edema, pedal pulses normal Skin: no rash Neurologic: rfp writer II-XII grossly normal, no motor/sensory deficits, alert, o riented x 3, responsive Musculoskeletal: normal muscle bulk Microbiology Date/Time Source Procedure Growth Status 01/14/20 07:45 Blood Blood Culture - Preliminary Resulted 01/14/20 07:30 Nasopharynx SARS-CoV-2 RdRp Gene Assay - Final Complete 01/14/20 07:30 Blood Blood Culture - Preliminary NO GROWTH AFTER 24 HOURS Resulted Laboratory Tests 01/16/20 06:38: White Blood Count 6.7, Red Blood Count 4.66L, Hemoglobin 13.6L, Hematocrit 40.2L , Mean Corpuscular Volume 86, Mean Corpuscular Hemoglobin 29.2, Mean Corpuscular Hemoglobin Concent 33.9, Red Cell Distribution Width 14.1, Platelet Count 154, Mean Platelet Volume 7.8, Neutrophils (%) (Auto) 74.5, Lymphocytes (%) (Auto) 13.6L, Monocytes (%) (Auto) 10.0, Eosinophils (%) (Auto) 0.7, Basophils (%) (Auto) 1.2, Sodium Level 139, Potassium Level 4.1, Chloride Level 105, Carbon Dioxide Level 27, Anion Gap 7, Blood Urea Nitrogen 14, Creatinine 1.2, Estimat Glomerular Filtration Rate > 60, Glucose Level 103, Calcium Level 8.6, Troponin I 0.032 Current Medications Medications (Trade) Dose Ordered Sig/Lola Route PRN Reason Start Time Stop Time Status Last Admin Dose Admin Acetaminophen (Tylenol) 650 mg Q4H PRN ORAL Mild Pain (Pain Scale 1-3) 01/14/20 16:30 02/13/20 16:29 Apixaban (Eliquis) 5 mg BID ORAL 01/14/20 18:00 04/13/20 17:59 01/16/20 08:59 Azithromycin 500 mg/Dextrose 275 ml @ 275 mls/hr Q24HRS IV 01/14/20 18:00 01/20/20 18:59 01/15/20 18:10 Ceftriaxone Sodium 1 gm/ Dextrose 55 ml @ 110 mls/hr Q24H IVPB 01/14/20 17:00 01/21/20 16:59 01/15/20 17:06 Diltiazem HCl (Cardizem Tab) 60 mg EVERY 6 HOURS ORAL 01/14/20 18:00 02/13/20 17:59 01/16/20 06:16 Famotidine (Pepcid) 20 mg DAILY ORAL 01/14/20 16:30 04/13/20 16:29 01/16/20 08:59 Guaifenesin/ Dextromethorphan (Robitussin DM Syrup) 10 ml Q6H PRN ORAL For Cough 01/15/20 09:45 04/14/20 09:44 01/16/20 08:59 Ipratropium [place] (Atrovent) 500 mcg Q4H PRN HHN Shortness of Breath 01/14/20 16:15 01/19/20 16:14 Magnesium Hydroxide (Mom) 30 ml DAILYPRN PRN ORAL Constipation 01/14/20 16:30 02/13/20 16:29 Metoprolol Tartrate (Lopressor) 5 mg Q5MIN X 3 IVP 01/14/20 08:00 04/13/20 07:59 01/14/20 10:07 Metoprolol Tartrate (Lopressor) 25 mg Q12HR ORAL 01/14/20 21:00 04/13/20 20:59 01/16/20 08:59 Assessment/Plan Assessment/Plan ASSESSMENT * Acute hypoxemic respiratory failure ( requiring supplemental O2 via VM) * Sepsis * RLL pneumonia * Lactic acidosis * Bronchospasm, possible COPD * Atrial flutter with RVR * elevated troponin * Gram positive primo bacteremia * tobacco use disorder * Hx HTN * MADDY possibly on CKD * Protein calorie malnutrition * elevated AST PLAN * abx for CAP /pneumonia -Azithro and Ceftriaxone * rate control for atrial flutter, now controlled, a/c with Xarelto * O2 titrate to keep sat > 90%, try to wean from VM * atrovent nebs, avoid albuterol * SCX if able * Venous Duplex BLE given persistent hypoxemia * 01/13 BCX 1/ GPR, likely contaminant, will repeat BCX for clearance * monitor volumes * fup with CXR in am * declined Nicotine patch * peer counselor to continue abstinence from smoking ( quit a week prior to admission) * serial troponin, troponin leak 2 to renal failure vs demand due to A flutter with RVR? , last troponin this am NGT * cardio eval appreciated; no cardiac complaints, * consider ECHO * creat down to normal , likely due to dehydration, Gunjan Holliday NP Jan 16, 2020 09:15 Inder Ruby MD Jan 16, 2020 11:37
[2020-01-16 12:00] VITALS: BP 134/89
--- NOTE | 2020-01-16 13:07 | Diagnostic Imaging Report ---
Indication: Bilateral leg pain Technique: Grayscale and duplex images of the bilateral lower extremity veins Comparison: Findings: Bilaterally, grayscale and duplex images demonstrate no evidence of intraluminal thrombus. Normal phasic Doppler waveforms, demonstrating normal augmentation response and no evidence of valvular insufficiency. Greater saphenous vein(s) and tibial veins are patent. Normal compressibility. Impression: Negative for evidence of lower extremity deep venous thrombosis bilaterally
--- NOTE | 2020-01-16 14:16 | General Progress Note ---
Subjective Constitutional: Reports: weakness HEENT: Reports: no symptoms Cardiovascular: Reports: no symptoms Gastrointestinal/Abdominal: Reports: no symptoms Genitourinary: Reports: no symptoms Neurologic/Psychiatric: Reports: no symptoms Endocrine: Reports: no symptoms Hematologic/Lymphatic: Reports: anemia Allergies: Coded Allergies: No Known Allergies (Unverified , 01/14/20) Objective Last 24 Hour Vital Signs Date Time Temp Pulse Resp B/P (MAP) Pulse Ox O2 Delivery O2 Flow Rate FiO2 01/16/20 12:30 79 19 100 01/16/20 12:13 67 134/89 01/16/20 12:00 77 01/16/20 12:00 98.1 67 18 134/89 (104) 94 01/16/20 08:59 98 140/91 01/16/20 08:00 99.1 98 20 140/91 (107) 95 01/16/20 08:00 89 01/16/20 08:00 89 01/16/20 07:15 95 Venturi Mask 4.0 30 01/16/20 06:16 97 147/99 01/16/20 04:00 71 01/16/20 04:00 98.8 56 20 126/81 (96) 98 01/16/20 00:00 98.8 66 20 134/84 (101) 97 01/16/20 00:00 66 01/15/20 23:57 66 134/84 01/15/20 21:29 95 124/85 01/15/20 21:00 Venturi Mask 4.0 01/15/20 20:00 99.0 95 24 124/85 (98) 95 01/15/20 20:00 75 01/15/20 18:14 85 116/81 01/15/20 16:00 75 01/15/20 16:00 98.8 69 18 118/79 (92) 96 Intake and Output 01/15/20 01/16/20 19:00 07:00 Intake Total 850 ml Output Total 750 ml Balance 100 ml Intake Oral 450 ml Other 400 ml Output Urine Total 750 ml Laboratory Tests 01/16/20 06:38: White Blood Count 6.7, Red Blood Count 4.66L, Hemoglobin 13.6L, Hematocrit 40.2L , Mean Corpuscular Volume 86, Mean Corpuscular Hemoglobin 29.2, Mean Corpuscular Hemoglobin Concent 33.9, Red Cell Distribution Width 14.1, Platelet Count 154, Mean Platelet Volume 7.8, Neutrophils (%) (Auto) 74.5, Lymphocytes (%) (Auto) 13.6L, Monocytes (%) (Auto) 10.0, Eosinophils (%) (Auto) 0.7, Basophils (%) (Aut o) 1.2, Sodium Level 139, Potassium Level 4.1, Chloride Level 105, Carbon Dioxide Level 27, Anion Gap 7, Blood Urea Nitrogen 14, Creatinine 1.2, Estimat Glomerular Filtration Rate > 60, Glucose Level 103, Calcium Level 8.6, Troponin I 0.032 Height (Feet): 5 Height (Inches): 9.00 Weight (Pounds): 127 General Appearance: no apparent distress, alert, thin EENT: normal ENT inspection Neck: normal alignment Cardiovascular: regularly irregular, systolic murmur Respiratory/Chest: lungs clear Abdomen: non tender, soft Edema: no edema noted Arm (L), no edema noted Arm (R), no edema noted Leg (L), no edema noted Leg (R), no edema noted Pedal (L), no edema noted Pedal (R), no edema noted Generalized Neurologic: emergency department manager II-XII grossly normal Assessment/Plan Problem List: (1) Atrial flutter ICD Codes: I48.92 - Unspecified atrial flutter SNOMED: 4273044 (2) Pneumonia ICD Codes: J18.9 - Pneumonia, unspecified organism SNOMED: 347252112, 627973386, 116122998 Qualifiers: Qualified Codes: J18.9 - Pneumonia, unspecified organism (3) Elevated troponin ICD Codes: R77.8 - Other specified abnormalities of plasma proteins SNOMED: 381570939, 934689503, 798843277 (4) COPD (chronic obstructive pulmonary disease) ICD Codes: J44.9 - Chronic obstructive pulmonary disease, unspecified SNOMED: 10011365 Qualifiers: Qualified Codes: J44.9 - Chronic obstructive pulmonary disease, unspecified Assessment/Plan: improving, continue current meds, CM to assess dc plan, BC G+ rods await ID, possible contaminant, hr controlled Miguel Mon MD Jan 16, 2020 14:16
--- NOTE | 2020-01-16 15:02 | Cardiology Progress Note ---
Assessment/Plan Assessment/Plan 1. Atrial flutter with controlled ventricular response, continue metoprolol and cardizem. On Eliquis for prevention of CVA. Awaiting 2D echocardiography. 2. Acute exacerbation of COPD. 3. Right lower lobe pneumonia. Subjective Subjective Atrial flutter with variable AV block, controlled ventricular response at 58. Objective Last 24 Hour Vital Signs Date Time Temp Pulse Resp B/P (MAP) Pulse Ox O2 Delivery O2 Flow Rate FiO2 01/16/20 12:30 79 19 100 01/16/20 12:13 67 134/89 01/16/20 12:00 77 01/16/20 12:00 98.1 67 18 134/89 (104) 94 01/16/20 08:59 98 140/91 01/16/20 08:00 99.1 98 20 140/91 (107) 95 01/16/20 08:00 89 01/16/20 08:00 89 01/16/20 07:15 95 Venturi Mask 4.0 30 01/16/20 06:16 97 147/99 01/16/20 04:00 71 01/16/20 04:00 98.8 56 20 126/81 (96) 98 01/16/20 00:00 98.8 66 20 134/84 (101) 97 01/16/20 00:00 66 01/15/20 23:57 66 134/84 01/15/20 21:29 95 124/85 01/15/20 21:00 Venturi Mask 4.0 01/15/20 20:00 99.0 95 24 124/85 (98) 95 01/15/20 20:00 75 01/15/20 18:14 85 116/81 01/15/20 16:00 75 01/15/20 16:00 98.8 69 18 118/79 (92) 96 Intake and Output 01/15/20 01/16/20 19:00 07:00 Intake Total 850 ml Output Total 750 ml Balance 100 ml Intake Oral 450 ml Other 400 ml Output Urine Total 750 ml Laboratory Tests Test 01/16/20 06:38 White Blood Count 6.7 K/UL (4.8-10.8) Red Blood Count 4.66 M/UL (4.70-6.10) L Hemoglobin 13.6 G/DL (14.2-18.0) L Hematocrit 40.2 % (42.0-52.0) L Mean Corpuscular Volume 86 FL (80-99) Mean Corpuscular Hemoglobin 29.2 PG (27.0-31.0) Mean Corpuscular Hemoglobin Concent 33.9 G/DL (32.0-36.0) Red Cell Distribution Width 14.1 % (11.6-14.8) Platelet Count 154 K/UL (150-450) Mean Platelet Volume 7.8 FL (6.5-10.1) Neutrophils (%) (Auto) 74.5 % (45.0-75.0) Lymphocytes (%) (Auto) 13.6 % (20.0-45.0) L Monocytes (%) (Auto) 10.0 % (1.0-10.0) Eosinophils (%) (Auto) 0.7 % (0.0-3.0) Basophils (%) (Auto) 1.2 % (0.0-2.0) Sodium Level 139 MMOL/L (136-145) Potassium Level 4.1 MMOL/L (3.5-5.1) Chloride Level 105 MMOL/L (98-107) Carbon Dioxide Level 27 MMOL/L (21-32) Anion Gap 7 mmol/L (5-15) Blood Urea Nitrogen 14 mg/dL (7-18) Creatinine 1.2 MG/DL (0.55-1.30) Estimat Glomerular Filtration Rate > 60 mL/min (>60) Glucose Level 103 MG/DL (74-106) Calcium Level 8.6 MG/DL (8.5-10.1) Troponin I 0.032 ng/mL (0.000-0.056) Microbiology Date/Time Source Procedure Growth Status 01/14/20 07:45 Blood Blood Culture - Preliminary Resulted 01/14/20 07:30 Nasopharynx SARS-CoV-2 RdRp Gene Assay - Final Complete 01/14/20 07:30 Blood Blood Culture - Preliminary NO GROWTH AFTER 24 HOURS Resulted Objective HEENT: Atraumatic and normocephalic. Anicteric. Pupils are equal, round, and reactive to light and accommodation. Extraocular muscles intact. NECK: JVP is about 10 cm. No carotid bruit. Carotid upstrokes 2+ bilaterally. CARDIOVASCULAR: Normal S1, S2. Irregular rhythm. No murmurs, gallops, or rubs. PMI is at fourth intercostal space in the midclavicular line. LUNGS: Diminished breath sounds with rhonchi. ABDOMEN: Soft, nontender, nondistended. Positive bowel sounds. EXTREMITIES: No edema, clubbing or cyanosis. Cecil Mora MD Jan 16, 2020 15:02
[2020-01-16 16:00] VITALS: BP 110/81
[2020-01-16] MEDS: cefTRIAXone 1 GM in D5W 55 ML IVPB SCH (17:29)
[2020-01-16] MEDS: Azithromycin 500 MG in D5W 275 ML IV SCH (18:23)
[2020-01-16] MEDS ORDERED: NS 275ml ONE (18:29)
[2020-01-16] MEDS ORDERED: Tubing IV Secondary IV ONE ×2 (18:29→21:34)
[2020-01-16 20:00] VITALS: BP 128/93
--- NOTE | 2020-01-16 21:15 | Consultation ---
DATE OF CONSULTATION: 01/15/2020 CARDIOLOGY CONSULTATION CONSULTING PHYSICIAN: Cecil Mora M.D. REFERRING PHYSICIAN: Miguel Mon M.D. REASON FOR CONSULTATION: Management of shortness of breath. HISTORY OF PRESENT ILLNESS: The patient is a very unfortunate 74-year-old gentleman, who comes from home for evaluation of shortness of breath with associated nonproductive cough that happened on 01/13/2020. Apparently, the patient was found by the EMS to have an oxygen saturation of 92% on room air with increased work of breathing. The patient was placed on 4 liters of nasal cannula oxygen, which improved to saturation. At the time of arrival of paramedics, the patient did not have any chest pain. History of coronary artery disease risk factors included history of tobacco use as well as hypertension. The patient's vital signs in the emergency department was blood pressure 170/120 mmHg and heart rate of 126. A 12-lead electrocardiogram was significant for sinus tachycardia with no ischemic changes. Chest x-ray revealed right-sided infiltration suggestive of pneumonia with associated hyperinflated lungs consistent with COPD. The patient was admitted to telemetry for further evaluation and management. Cardiology consultation was made at request of Dr. Mon for management of dyspnea. PAST MEDICAL HISTORY: Hypertension, COPD. PAST SURGICAL HISTORY: None. ALLERGIES: No known drug allergies. SOCIAL HISTORY: Extensive tobacco history, quit about a week ago. Denies any ETOH or illicit drugs. PAST SURGICAL HISTORY: None. REVIEW OF SYSTEMS: A 12-system review done essentially negative except what was mentioned in the history of present illness. FAMILY HISTORY: Noncontributory. PHYSICAL EXAMINATION: VITAL SIGNS: Blood pressure was 170/120 mmHg, pulse of 126, respirations 21, temperature 99.1 degrees Fahrenheit, and O2 saturation 98% on nasal cannula. GENERAL: The patient is a very unfortunate 74-year-old gentleman, in no apparent respiratory distress. Alert and oriented x4. HEENT: Atraumatic, normocephalic. Anicteric. Pupils are equal, round, and reactive to light and accommodation. Extraocular muscles intact. NECK: JVP less than 5 cm. No carotid bruit. Carotid upstroke is 2+ bilaterally. CARDIOVASCULAR: Normal S1, S2. Regular rate and rhythm. Tachycardic. No murmurs, gallops, or rubs. LUNGS: Diminished breath sounds in both lungs with rhonchi scattered. ABDOMEN: Soft, nontender, and nondistended. No hepatosplenomegaly. Positive bowel sounds. EXTREMITIES: No evidence of edema, clubbing, or cyanosis. LABORATORY FINDINGS: WBC 12.3, hemoglobin of 15.3, hematocrit of 48.8, platelet count is 135, 82% neutrophils, and 10% bandemia. Sodium is 139, potassium is 4.0, chloride 103, bicarbonate 16, BUN of 22, creatinine 2.0, glucose 198, calcium is 8.9. AST is 87, ALT is 19. Troponin I is 0.099. ProBNP was 10,947. INR is 1.2. D-dimer is 5.05. ASSESSMENT AND PLAN: The patient is a very unfortunate 74-year-old gentleman, seen in Cardiology consultation. 1. Dyspnea, most likely due to acute exacerbation of chronic obstructive pulmonary disease, pulmonary consultation with pulmonary toilet, IV antibiotics, oxygen and pulmonary toilet. We will obtain 2D echocardiography for assessment of pulmonary artery pressure and evaluation of LV systolic and diastolic function. 2. History of hypertension. We will continue the patient's amlodipine and Maxzide as well as metoprolol. 3. History of tobacco use. I would like to thank, Dr. Mon, for the courtesy of this consultation. Cecil Mora M.D. DR: SHOSHANA JOB#: [id number] CC:
[2020-01-17] VITALS: BP 131/89
[2020-01-17] MEDS: dilTIAZem HCl 60mg tab ORAL SCH ×2 (00:28→05:32)
[2020-01-17 04:00] VITALS: BP 121/90
[2020-01-17 08:00] VITALS: BP 149/115
--- NOTE | 2020-01-17 08:07 | Pulmonology Progress Note ---
Subjective ROS Limited/Unobtainable: No Allergies: Coded Allergies: No Known Allergies (Unverified , 01/14/20) All Systems: reviewed and negative except above Subjective leuk resolved, low grade fever at MN, currently afebrile on O2 via NC, sat stable + cough, some SOB no hemoptysis, no wheezing reports feeling better no CP, palpitations HR controlled, though remains in A flutter creat down to normal Objective Last 24 Hour Vital Signs Date Time Temp Pulse Resp B/P (MAP) Pulse Ox O2 Delivery O2 Flow Rate FiO2 01/17/20 05:32 108 134/106 01/17/20 04:00 97.9 94 19 121/90 (100) 96 01/17/20 04:00 80 01/17/20 00:28 90 131/89 01/17/20 00:00 99.7 91 19 131/89 (103) 98 01/17/20 00:00 77 01/16/20 21:10 82 128/93 01/16/20 21:00 Nasal Cannula 2.0 01/16/20 20:00 99.9 84 21 128/93 (105) 96 01/16/20 20:00 88 01/16/20 18:48 96 Venturi Mask 4.0 30 01/16/20 17:29 82 110/81 01/16/20 16:00 82 01/16/20 16:00 99.0 77 20 110/81 (91) 96 01/16/20 12:30 79 19 100 01/16/20 12:13 67 134/89 01/16/20 12:00 77 01/16/20 12:00 98.1 67 18 134/89 (104) 94 01/16/20 09:00 Room Air 01/16/20 08:59 98 140/91 Intake and Output 01/16/20 01/17/20 19:00 07:00 Intake Total 360 ml Output Total 850 ml Balance -490 ml Intake Oral 360 ml Output Urine Total 850 ml # Voids 3 3 # Bowel Movements 1 1 General Appearance: no acute distress HEENT: normocephalic, atraumatic, anicteric, mucous membranes moist, PERRL, other - VM on Respiratory: chest wall non-tender, no respiratory distress, other - few isolated rhonchi on the right, overall BS much clear Cardiovascular: normal rate - A flutter on tele Abdomen: normal bowel sounds, soft, non tender, non distended Extremities: no edema, pedal pulses normal Skin: no rash Neurologic: utility teller II-XII grossly normal, no motor/sensory deficits, alert, oriented x 3, responsive Musculoskeletal: normal muscle bulk Microbiology Date/Time Source Procedure Growth Status 01/16/20 12:30 Sputum Expectorated Gram Stain - Final Resulted 01/16/20 12:30 Sputum Expectorated Sputum Culture Pending Resulted Current Medications Medications (Trade) Dose Ordered Sig/Lola Route PRN Reason Start Time Stop Time Status Last Admin Dose Admin Acetaminophen (Tylenol) 650 mg Q4H PRN ORAL Mild Pain (Pain Scale 1-3) 01/14/20 16:30 02/13/20 16:29 Apixaban (Eliquis) 5 mg BID ORAL 01/14/20 18:00 04/13/20 17:59 01/16/20 17:29 Azithromycin 500 mg/Dextrose 275 ml @ 275 mls/hr Q24HRS IV 01/14/20 18:00 01/20/20 18:59 01/16/20 18:23 Ceftriaxone Sodium 1 gm/ Dextrose 55 ml @ 110 mls/hr Q24H IVPB 01/14/20 17:00 01/21/20 16:59 01/16/20 17:29 Diltiazem HCl (Cardizem Tab) 60 mg EVERY 6 HOURS ORAL 01/14/20 18:00 02/13/20 17:59 01/17/20 05:32 Famotidine (Pepcid) 20 mg DAILY ORAL 01/14/20 16:30 04/13/20 16:29 01/16/20 08:59 Guaifenesin/ Dextromethorphan (Robitussin DM Syrup) 10 ml Q6H PRN ORAL For Cough 01/15/20 09:45 04/14/20 09:44 01/16/20 08:59 Ipratropium Tigrett (Atrovent) 500 mcg Q4H PRN HHN Shortness of Breath 01/14/20 16:15 01/19/20 16:14 Magnesium Hydroxide (Mom) 30 ml DAILYPRN PRN ORAL Constipation 01/14/20 16:30 02/13/20 16:29 Metoprolol Tartrate (Lopressor) 25 mg Q12HR ORAL 01/14/20 21:00 04/13/20 20:59 01/16/20 21:10 Assessment/Plan Assessment/Plan ASSESSMENT * Acute hypoxemic respiratory failure ( requiring supplemental O2 via VM) - resolving * Sepsis * RLL pneumonia * Lactic acidosis * Bronchospasm, possible COPD * Atrial flutter with RVR * elevated troponin -resolved * tobacco use disorder * HTN * MADDY -resolved * Protein calorie malnutrition * elevated AST PLAN * abx for CAP /pneumonia -Azithro and Ceftriaxone * rate control for atrial flutter, now controlled, a/c with Xarelto * O2 titrate to keep sat > 90%, now on o2 via NC, clinically sign improvement * atrovent nebs, avoid albuterol * SCX pending * Venous Duplex BLE given persistent hypoxemia - NGT * 01/13 BCX 1/ GPR/ bacilli, likely contaminant, will repeat BCX for clearance * monitor volumes * fup with CXR this am - pending * a/tussive prn * declined Nicotine patch * adoption counselor to continue abstinence from smoking ( quit a week ago) * serial troponin, troponin leak 2 to renal failure vs demand due to A flutter with RVR? , last troponin this am NGT * cardio eval appreciated; no cardiac complaints, * ECHO with pEF, no WNA * BP management with CCB and BB-per cardio recs * creat down to normal , likely due to dehydration, * dietary eval re protein calorie malnutrition * GI prophylaxis * monitor LFT, AST trending down, denies ETOH or dug use, no hx of liver disease, no hx of hepatitis case discussed and evaluated by supervising physician Gunjan Holliday NP Jan 17, 2020 08:07
--- NOTE | 2020-01-17 08:47 | Diagnostic Imaging Report ---
EXAM: XR Chest, 1 View CLINICAL HISTORY: SOB TECHNIQUE: Frontal view of the chest. COMPARISON: Chest x-ray 01/14/20 FINDINGS: Lungs: Hyperinflated lungs, COPD. Right midlung and lower lung airspace opacities. Pleural space: Small to moderate right pleural effusion. No pneumothorax. Heart: Mild cardiomegaly. Mediastinum: Unremarkable. Bones/joints: Unremarkable. IMPRESSION: 1. Hyperinflated lungs, COPD. 2. Right midlung and lower lung airspace opacities. 3. Small to moderate right pleural effusion. 4. Mild cardiomegaly.
[2020-01-17 08:53] VITALS: BP 149/115
[2020-01-17] MEDS: Eliquis 5mg tablet ORAL SCH (08:53)
[2020-01-17] MEDS ORDERED: CARDIAZEM CD240 MG PO (09:34)
[2020-01-17] MEDS ORDERED: AUGMENTIN 875-1 EAC1 ORAL (09:34)
--- NOTE | 2020-01-17 10:15 | Discharge Summary ---
DATE OF ADMISSION: 01/14/2020 DATE OF DISCHARGE: 01/17/2020 HISTORY OF PRESENT ILLNESS: The patient is a 74-year-old male with a history of hypertension, COPD, cigarette smoking who presents with shortness of breath, abnormal chest x-ray, atrial flutter. PERTINENT PHYSICAL FINDINGS: GENERAL: The patient is alert, thin. LUNGS: Distant breath sounds. HEART: Rhythm is irregular, atrial flutter. There is a 2/6 systolic ejection murmur. ABDOMEN: Soft without organomegaly. EXTREMITIES: No edema. COURSE IN THE HOSPITAL: The patient was started on antibiotics for right lower lobe pneumonia and the rate control for his atrial flutter with diltiazem and metoprolol. With the above treatment, his condition improved. He had a mild elevation of lactate and elevated BUN and creatinine likely due to diuretics which improved. The patient's overall condition improved with the above treatment. He did have a blood culture, one specimen showing bacillus which was likely a contaminant. On the day of discharge, his vital signs were stable. LUNGS: Clear with distant breath sounds. HEART: Rhythm was atrial flutter, controlled rate. ABDOMEN: Nontender. EXTREMITIES: No edema. He was discharged in improved condition. He will be followed up in the [facility] where he has been seen in the past. FINAL DIAGNOSES: 1. Community-acquired pneumonia. 2. COPD with exacerbation. 3. Atrial flutter with rapid rate. 4. Elevated troponin likely demand ischemia. DISCHARGE DISPOSITION: On a regular diet. Medications per the discharge medication list. We will follow up in the [facility] where he has gone in the past. Miguel Mon M.D. DR: [place] JOB#: [id number] CC:
== END 2020-01-17 11:00 | disposition home or self-care (01) | DRG 871 ==
LOC: EDBD 07:17 → EMR 07:35 → 2E 09:00 → EDBEDREQ 11:31
DX: A41.9 Sepsis, unspecified organism (principal); J18.9 Pneumonia, unspecified organism; J96.01 Acute respiratory failure with hypoxia; I48.92 Unspecified atrial flutter; N17.9 Acute kidney failure, unspecified; E46 Unspecified protein-calorie malnutrition; J44.1 Chronic obstructive pulmonary disease with (acute) exacerbation; I24.8 Other forms of acute ischemic heart disease; N18.9 Chronic kidney disease, unspecified; Z87.891 Personal history of nicotine dependence; Z89.421 Acquired absence of other right toe(s); Z79.82 Long term (current) use of aspirin; I12.9 Hypertensive chronic kidney disease with stage 1 through stage 4 chronic kidney disease, or unspecified chronic kidney disease; E86.0 Dehydration
CPT/HCPCS: 36415; 71045; 80048; 80053; 82248; 82550; 82553; 82728; 82803; 83605; 83615; 83690; 83880; 84484; 85007; 85025; 85379; 85610; 85730; 86140; 87040; 87070; 87205; 93005; 93306; 93970; 94640; 96361; 96365; 96372; 96375; 99291; J2405; J7030; J7620; U0002